=== PATIENT | male | born 1945 | race Hispanic/Latino ===

== ENCOUNTER 2018-04-16 07:35 | Outpatient (CLI) | payer MEDICARE | END 2018-04-16 07:36 | disposition home or self-care (01) | LOC: LAB 07:35 ==

== ENCOUNTER 2018-04-27 09:34 | Outpatient (CLI) | payer MEDICARE | END 2018-04-27 09:35 | disposition home or self-care (01) | LOC: RAD 09:34 ==

== ENCOUNTER 2018-08-06 12:42 | Outpatient (CLI) | payer MEDICARE | END 2018-08-06 12:43 | disposition home or self-care (01) | LOC: RAD 12:42 ==